=== PATIENT | female | born 1975 ===

== ENCOUNTER 2017-10-17 08:47 | Inpatient (IN) ==
[2017-10-17] MEDS ORDERED: Metoclopramide 10 MG/2 ML VIAL IVP PRN (09:17)
[2017-10-17] MEDS ORDERED: Famotidine 20 MG/2 ML VIAL IVP PRN (09:17)
[2017-10-17] MEDS ORDERED: Naloxone 0.4 MG/ML INJ IVP PRN (09:17)
[2017-10-17] MEDS ORDERED: Penicillin G Potassium 5,000,000 UNIT in 0.9 % Sodium Chloride Mini Bag 100 ML IVPB ONE (09:20)
[2017-10-17] MEDS ORDERED: Ringers Solution, Lactated 1,000 ML IVC SCH (09:30)
[2017-10-17 09:43] LABS: Basophils % 0.3 %; Eosinophils # 0.1 K/mcL (0.0-0.6); Hematocrit 38.5 % (35.3-44.9); Hemoglobin 13.1 g/dL (11.5-15.4); Immature Granulocytes % 0.3 % (0-4); Lymphocytes # 0.9 K/mcL (0.6-4.6); Lymphocytes % 14.6 %; Mean Corpuscular Hemoglobin 31.6 pg (28.0-33.3); Mean Corpuscular Volume 92.8 fL (83.0-100.0); Mean Platelet Volume 12.1 fL (9.4-12.4); Monocytes # 0.6 K/mcL (0.0-1.3); Monocytes % 9.5 %; Neutrophils # 4.4 K/mcL (1.6-8.9); Platelet Count 114 K/mcL (140-400); Red Blood Count 4.15 M/mcL (3.82-4.97); Red Cell Distribution Width 12.7 % (11.5-14.5); Segmented Neutrophils % 74.3 %
--- NOTE | 2017-10-17 10:37 | OB/GYN History & Physical ---
Date of Encounter: 10/17/17 Time of Encounter: 10:33 Assessment and Plan (1) SROM (spontaneous rupture of membranes) Current visit: Yes Status: Acute Admit to labor and delivery Nubain and epidural as desired Anticipate (2) Advanced maternal age (AMA), 40 years or greater Current visit: Yes Status: Acute (3) Hepatitis B, chronic Current visit: Yes Status: Acute (4) Positive GBS test Current visit: Yes Status: Acute Penicillin per policy (5) Late care affecting in third trimester Current visit: Yes Status: Acute (6) Gestational diabetes mellitus Current visit: Yes Status: Acute Qualifiers: Gestational diabetes mellitus control: diet-controlled Trimester: third trimester Qualified Code(s): O24.410 - Gestational diabetes mellitus in , diet controlled History of Present Illness Chief complaint: Spontaneous rupture membranes HPI: Ms. Caldwell is a 42 year old female 38+6 weeks gestation cents to triage with spontaneous rupture membranes at 8:30 this morning. course complicated with gestational diabetes, diet controlled, positive hepatitis B status, advanced maternal age, late care. Reports good movement. All information obtain with help of edge beader phone Labs: O+, rubella and varicella immune, HBsAg reactive, GBS positive, all other serologies negative Obstetrical History - Pregnancies : 2 Para: 1 Term: 1 : 0 Ab's: 0 Livin Exam - Constitutional Constitutional: well developed, well nourished, no acute distress, average body habitus - Neck Neck exam: full ROM - Lungs Respiratory exam: CTAB - Cardiovascular Cardiovascular exam: RRR - Abdomen Abdomen: Present: bowel sounds normal, gravid, non tender - Extremities Extremities exam: normal capillary refill, normal inspection - Cervix Dilation: 5 Effacement: 100 - Uterus Uterus exam: Present: normal size - Anus/Rectum Anus/Rectum: Present: normal perianal skin Results Result Diagrams: 10/17/17 09:23 Abnormal lab results Plt Count 114 K/mcL (140-400) L 10/17/17 09:23 All other labs normal. - VTE Reasons for not Prescribing Prophylaxis: Treatment not Indicated - Low risk for VTE
[2017-10-17 10:44] LABS: Amphetamine Screen,Urine Negative ng/mL (Cutoff=1000); Barbiturate Screen,Urine Negative ng/mL (Cutoff=200); Benzodiazepines Screen,Urine Negative ng/mL (Cutoff=200); Cannabinoid Screen,Urine Negative ng/mL (Cutoff = 50); Cocaine Screen,Urine Negative ng/mL (Cutoff= 300); Opiate Screen,Urine Negative ng/mL (Cutoff=300); Phencyclidine Screen,Urine Negative ng/mL (Cutoff=25)
--- NOTE | 2017-10-17 10:46 | Anesthesia Progress Note ---
Date of Encounter: 10/17/17 Time of Encounter: 10:42 Anesthesia Note - Note Note: Because of language barrier, discussed with patient her options for labor analgesia using [facility] printer assistant. At this time, patient refuses any anesthesia services in the event of a vaginal delivery. Discussed with patient anesthetic options in the event of an urgent or emergent C section and she states she would like to be put under general anesthesia. 10/17/17 10:43
[2017-10-17] MEDS ORDERED: Oxytocin 20 units/ LR 1000 mL 20 UNIT/1,000 ML BAG IVC ONE ×2 (10:54→15:31)
[2017-10-17] MEDS ORDERED: Penicillin G Potassium 2,500,000 UNIT in 0.9 % Sodium Chloride 100 ML IVPB SCH (12:00)
--- NOTE | 2017-10-17 13:16 | OB/GYN Procedure Note ---
Delivery - Delivery Date: 10/17/17 Provider: Joan Topete Intrapartum events: none Delivery induction: none Delivery augmentation: rupture of membranes Delivery monitor: external FHT, external uterine Anesthesia: local Estimated Blood Loss: 400 - Infant (s) Infant A Infant Delivery Date: 10/17/17 Infant Delivery Time: 12:37 Presentation: vertex Position: ADAMA Route of delivery: Gender: Male Viability: Viable Pounds: 7 Ounces: 15 Weight Gram: 3590 kg at 1 minute: 6 at 5 mins: 9 Shoulder Dystocia: not encountered Specimens collected: cord blood Placenta: spontaneous Cord: 3 umbilical vessels - Repair Laceration Description: Perineal - 3rd Degree - Complications Delivery complications: none Delivery comments: Spontaneous onset to labor. Patient progressed to complete. Maternal bearing down efforts of liveborn male. Vertex delivered ADAMA, shoulders and body followed with maternal effort. No nuchal cord or shoulder dystocia encountered. Vigorous infant placed on maternal abdomen, (Apgars 6/9). Placenta delivered spontaneously (Giana), complete upon inspection, third degree perineal laceration repaired by Dr. Lomas, EBL 400. Mother and infant left bonding stable on labor and delivery Nursery nurse reports bilateral simian creases noted, and also tongue thrusting. to be evaluated by paper gluing operator later in recovery. - Disposition Mom disposition: stable in LDR [place] disposition: stable in LDR
[2017-10-17] MEDS ORDERED: Oxytocin 20 units/ LR 1000 mL 20 UNIT/1,000 ML BAG IVC SCH (15:34)
[2017-10-17] MEDS ORDERED: Lanolin 7 G OINT...G. TP PRN (15:34)
[2017-10-17] MEDS ORDERED: Ibuprofen 600 MG TABLET PO PRN (15:34)
[2017-10-17] MEDS ORDERED: Benzocaine/Menthol 56 GM AEROSOL SPRAY TP PRN (15:34)
[2017-10-17] MEDS ORDERED: *HR* HYDROcodone/Acet 5/325 mg TABLET PO PRN (15:34)
[2017-10-17] MEDS ORDERED: Acetaminophen 325 MG TABLET PO PRN (15:34)
[2017-10-18 04:42] LABS: Hematocrit 33.3 % (35.3-44.9); Red Blood Count 3.62 M/mcL (3.82-4.97)
[2017-10-18 04:44] LABS: Basophils % 0.3 %; Eosinophils % 0.4 %; Hemoglobin 11.2 g/dL (11.5-15.4); Immature Granulocytes % 0.5 % (0-4); Lymphocytes # 1.1 K/mcL (0.6-4.6); Lymphocytes % 10.1 %; Mean Corpuscular HGB Conc 33.6 g/dL (31.6-35.5); Mean Corpuscular Hemoglobin 30.9 pg (28.0-33.3); Monocytes # 0.9 K/mcL (0.0-1.3); Monocytes % 8.1 %; Neutrophils # 8.9 K/mcL (1.6-8.9); Platelet Count 106 K/mcL (140-400); Red Cell Distribution Width 12.8 % (11.5-14.5); Segmented Neutrophils % 80.6 %
[2017-10-18] MEDS: Prenatal Vit/FA 1 EACH TABLET PO SCH (09:20)
--- NOTE | 2017-10-18 10:44 | OB/GYN Progress Note ---
Date of Encounter: 10/18/17 Time of Encounter: 10:37 - Assessment and Plan (1) Vaginal delivery Current Visit: Yes Status: Acute S/P vaginal delivery Day 1 Continue routine PP care Pain not well controlled due to third degree tear and not taking medication Encouraged to take pain meds, will reevaluate tomorrow Anticipate discharge home tomorrow Subjective - Subjective Patient reports: appetite normal, voiding normally, ambulating normally, other ( States "everything good." Tolerating regular diet well. Wincing with movement, not sitting direcly on bottom. unable to verbalize if she has been taking any pain medication. Lochia light and without clots. Reports ambulating and voiding without difficulty. Passing gas, no BM. Bottlefeeding. Disharge tomorrow after pain well controlled) Varney: doing well, bottle feeding Objective - Latest Vital Signs Latest vital signs: Vital Signs Temp Pulse Pulse Resp BP Pulse Ox 10/18/17 07:44 98.2 F 76 20 113/65 95 10/18/17 04:05 98.5 F 69 69 12 110/63 95 10/17/17 20:45 98.9 F 76 76 14 122/65 95 10/17/17 17:30 99.2 F 74 16 120/67 97 10/17/17 16:46 97.6 F 70 16 116/62 95 10/17/17 15:15 98.4 F 67 16 131/69 99 10/17/17 14:55 65 16 126/61 10/17/17 14:40 98.3 F 67 16 122/58 Intake and Output 10/17/17 10/18/17 10/18/17 23:59 07:59 15:59 Intake Total 214 / 214 240 / 240 Output Total 1600 / 1600 350 / 350 200 / 200 Balance -1386 / -1386 -350 / -350 40 / 40 Intake: IV Fluids 214 / 214 Pitocin 20 unit In 1,000 ml @ 0 214 / 214 mls/hr IVC .[facility] Rx#: [id number] Oral 240 / 240 Output: Urine 1600 / 1600 350 / 350 200 / 200 Other: Meal Breakfast Percent of Meal Consumed 100% - Exam Lungs: bilateral: normal Chest: Normal S1, Normal S2 Extremities: Present: normal Abdomen: Present: normal appearance, soft Uterus: Present: firm Uterus Position: At Umbilicus, Midline - Labs Labs: Laboratory Results - last 24 hr 10/17/17 10/18/17 09:30 04:04 WBC 11.0 D RBC 3.62 L Hgb 11.2 L D Hct 33.3 L MCV 92.0 MCH 30.9 MCHC 33.6 RDW 12.8 Plt Count 106 L MPV 12.0 Immature Gran % 0.5 Seg Neutrophils % 80.6 Lymphocytes % 10.1 Monocytes % 8.1 Eosinophils % 0.4 Basophils % 0.3 Neutrophils # 8.9 Lymphocytes # 1.1 Monocytes # 0.9 Eosinophils # 0.0 Basophils # 0.0 Immature Plt Fraction 7.0 H Urine Opiates Screen Negative Ur Barbiturates Screen Negative Ur Phencyclidine Scrn Negative Ur Amphetamines Screen Negative U Benzodiazepines Scrn Negative Urine Cocaine Screen Negative U Marijuana (THC) Screen Negative
[2017-10-19 07:56] VITALS: BP 106/68
[2017-10-19] MEDS: Prenatal Vit/FA 1 EACH TABLET PO SCH ×2 (08:43→09:50)
--- NOTE | 2017-10-19 09:49 | Discharge Summary ---
Date of Encounter: 10/19/17 Time of Encounter: 09:49 - Discharge Diagnosis (1) Vaginal delivery Priority: Primary Status: Acute Comments: Doing well, cont. routine post care. - Discharge Medications Home Medications: Vitamins 1 tab PO DAILY 10/17/17 [History] Allergies/Adverse Reactions: 3 Allergy/AdvReac Type Severity Reaction Status Date / Time No Known Allergies Allergy Verified 10/17/17 13:09 Data Procedures and tests throughout hospitalization: Laboratory Tests 10/17/17 10/17/17 10/18/17 09:23 09:30 04:04 WBC 5.9 11.0 D RBC 4.15 3.62 L Hgb 13.1 11.2 L D Hct 38.5 33.3 L MCV 92.8 92.0 MCH 31.6 30.9 MCHC 34.0 33.6 RDW 12.7 12.8 Plt Count 114 L 106 L MPV 12.1 12.0 Immature Gran % 0.3 0.5 Seg Neutrophils % 74.3 80.6 Lymphocytes % 14.6 10.1 Monocytes % 9.5 8.1 Eosinophils % 1.0 0.4 Basophils % 0.3 0.3 Neutrophils # 4.4 8.9 Lymphocytes # 0.9 1.1 Monocytes # 0.6 0.9 Eosinophils # 0.1 0.0 Basophils # 0.0 0.0 Immature Plt Fraction 7.0 H Urine Opiates Screen Negative Ur Barbiturates Screen Negative Ur Phencyclidine Scrn Negative Ur Amphetamines Screen Negative U Benzodiazepines Scrn Negative Urine Cocaine Screen Negative U Marijuana (THC) Screen Negative - Impressions Doing well s/p . Cont. post care. Will D/c home. 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 Time Attestation: Total time spent providing and/or coordinating discharge services: Exam - Constitutional Vitals: Temp Pulse Resp BP Pulse Ox 97.7 F 64 16 106/68 97 10/19/17 07:54 10/19/17 07:54 10/19/17 07:54 10/19/17 07:54 10/19/17 07:54 General appearance IM: A&O X 3 - Respiratory Respiratory exam: Present: CTAB - Cardiovascular Cardiovascular exam IM: Present: RRR - GI/Abdominal GI/Abdominal exam IM: normal bowel sounds Incision: normal, dressed - Uterus Position: 2 Fingers Below Umbilicus - Extremities Exam Extremities exam IM: Present: full ROM - Neurological Exam Neurological exam: oriented X3 - VTE Reasons for not Prescribing Prophylaxis: Treatment not Indicated - Low risk for VTE
--- NOTE | 2017-10-19 10:04 | Discharge Summary ---
Outpatient Proc Discharge Plan - Plan Prescriptions: HYDROcodone/Acet 5/325 mg [[place] 5-325 mg] 1 tab PO Q6HR PRN 7 Days #25 tablet PRN Reason: Moderate Pain (4-6) Ibuprofen [Motrin] 600 mg PO Q6HR PRN #40 tablet PRN Reason: Cramping Home Medications: Vitamins 1 tab PO DAILY 10/17/17 [History] HYDROcodone/Acet 5/325 mg [[place] 5-325 mg] 1 tab PO Q6HR PRN 7 Days #25 tablet 10/19/17 [Rx] Ibuprofen [Motrin] 600 mg PO Q6HR PRN #40 tablet 10/19/17 [Rx]
== END 2017-10-19 15:31 | disposition home or self-care (01) | DRG 774 ==
LOC: 1NENULAB → OBSVTOIN 08:47 → 1NENUOBS 15:34
PROVIDERS: ADMIT Student in an Organized Health Care Education/Training Program; ATTEND Student in an Organized Health Care Education/Training Program